=== PATIENT | male | born 1955 | race Caucasian/White ===

== ENCOUNTER → 2016-11-06 | Outpatient (CLI) | payer OTHER ==
[~2016-11-06] MED LIST: ALBUTEROL SULFATE 0.083% NEB 2.5 MG/3 ML AMPUL NEB ONE
--- NOTE | 2016-11-07 09:12 | PULMONARY FUNCTION TEST ---
DATE OF SERVICE: 11/06/2016 THE VITAL CAPACITY IS NORMAL. THE EXPIRATORY FLOW RATES ARE SLIGHTLY DECREASED. THE FEV1/VC IS 59%, PREDICTED: 80% LUNG VOLUMES BY NITROGEN WASH OUT METHOD SHOW: TLC IS 106% OF PREDICTED FRC IS 111% OF PREDICTED RV IS 112% OF PREDICTED THE RV/TLC RATIO IS 38% PREDICTED 37% AFTER BRONCHODILATOR, EXPIRATORY FLOW RATES SHOW SIGNIFICANT IMPROVEMENT. IMPRESSION: GOOD PATIENT EFFORT SLIGHT OBSTRUCTIVE DEFECT WITH SIGNIFICANT IMPROVEMENT IN EXPIRATORY FLOW RATES AFTER BRONCHODILATOR. LUNG VOLUMES ARE NORMAL. CC: KYA QUINTANILLA > CHIKI
== END ==
LOC: RT 13:46
PROVIDERS: ATTEND Physician Assistant
DX: J45.909 Unspecified asthma, uncomplicated (principal); J44.9 Chronic obstructive pulmonary disease, unspecified
CPT/HCPCS: 94060; 94727